=== PATIENT | female | born 1990 | race Caucasian/White ===

== ENCOUNTER 2017-12-05 13:24 | Outpatient (CLI) | payer BC ==
[2017-12-05 14:50] LABS: BHCG - Serum Negative (NEGATIVE); Pregs Control Background? CLEAR/WHITE (CLR/WHITE); Pregs Control Bar Appear? YES (CONTROL BAR)
== END 2017-12-05 13:25 | disposition home or self-care (01) ==
LOC: LABBT 13:24
PROVIDERS: ATTEND Neurological Surgery
DX: Z01.812 Encounter for preprocedural laboratory examination (principal); M54.16 Radiculopathy, lumbar region
CPT/HCPCS: 84703

== ENCOUNTER 2017-12-10 06:05 | Day surgery (SDC) | payer BC ==
[2017-12-05 13:51] VITALS: BMI 31.4
[2017-12-10] MEDS ORDERED: CEFAZOLIN/Water 2 GM/20 ML SYRINGE ONE ×2 (07:02→11:51)
[2017-12-10] MEDS ORDERED: Famotidine/PF 20 mg/2ml Vial ONE (08:24)
[2017-12-10] MEDS ORDERED: Bupivacaine HCl 0.5%/Epinephrine 1:200,000/PF 30 ml Vial ONE (08:24)
[2017-12-10] MEDS ORDERED: Fentanyl 100 MCG/2 ML VIAL ONE ×4 (08:24→10:32)
[2017-12-10] MEDS ORDERED: Midazolam HCl 2 mg/2 ml Vial ONE (08:51)
--- NOTE | 2017-12-10 09:48 | OP ---
DATE OF PROCEDURE: 12/10/2017 SURGEON: Dave Acosta M.D. ORDER PULLER: Daniel Nunes PA-C. INDICATION: Pain. DIAGNOSIS: Lumbar radiculopathy. PROCEDURE PERFORMED: L4 discectomy. ANESTHESIA: General. TECHNIQUE: The patient was brought into the operating room and placed under general anesthesia. She was flipped from a supine to a prone position on the operating room table. A linear incision was pl anned over the L4-L5 segment. After prepping and draping and after an appropriate operative pause, t he incision was created. The soft tissues were swept away from midline. A self-retaining retractor was placed in the wound for optimal exposure. An Adson rongeur was used to remove the spinous proces s at the inferior aspect of L4 and the superior top of L5. High-speed cutting drill bit as well as 2 , 3 and 4-mm Kerrisons were then used to perform a hemilaminectomy midline encompass the medial aspect of facet joint on the left. The descending L5 nerve root was identified and mobilized medial ly. An 11 blade knife was used to perform an annulotomy in the disk space. All disk material was re moved until there was decompression of the descending nerve root. The wound was irrigated. Hemostas is was maintained throughout. The wound was then closed in anatomic layers and a pressure dressing w as applied. There were no known procedural complications.
[2017-12-10] MEDS ORDERED: Morphine 4 MG/ML VIAL ONE ×2 (10:36→11:07)
[2017-12-10] MEDS ORDERED: PROPOFOL 200 MG/20 ML VIAL ONE (13:09)
[2017-12-10] MEDS ORDERED: Glycopyrrolate 0.2 MG/ML 5 ML SYRINGE ONE (13:09)
[2017-12-10] MEDS ORDERED: Ondansetron HCl/PF 4 MG/2 ML Vial ONE (13:09)
[2017-12-10] MEDS ORDERED: Dexamethasone 20 MG/5 ML VIAL ONE (13:09)
[2017-12-10] MEDS ORDERED: Ketorolac Tromethamine 30 MG/ML VIAL ONE (13:09)
[2017-12-10] MEDS ORDERED: Lidocaine 1% PF 5 ML VIAL ONE (13:09)
== END 2017-12-10 12:35 | disposition home or self-care (01) ==
LOC: SDC 06:05
PROVIDERS: ATTEND Neurological Surgery
PROC: 01NB0ZZ Release Lumbar Nerve, Open Approach (ICD-10-PCS; principal; 2017-12-10)
DX: M51.16 Intervertebral disc disorders with radiculopathy, lumbar region (principal)
CPT/HCPCS: 76001; 96374; 96375; J0131; J0670; J1100; J1885; J2001; J2250; J2270; J2405; J2704; J3010; S0028